=== PATIENT | female | born 1965 | race Caucasian/White ===

== ENCOUNTER → 2021-04-25 | Outpatient (CLI) | payer OTHER ==
[2021-04-25 11:01] LABS: HCT 46.6 % (34.0-46.0); HGB 14.8 gm/dL (11.4-16.0); MCH 29.8 pg (25.0-35.0); MCHC 31.7 g/dL (31.0-37.0); Platelet Count 248 k/uL (150-450); RBC 4.96 m/uL (3.80-5.40); WBC 5.4 k/uL (3.8-10.6)
[2021-04-25 11:18] LABS: African American GFR (CKD) >90 (>60 ml/min/1.73 sqM); Anion Gap 5 mmol/L; Blood Urea Nitrogen 13 mg/dL (7-17); Calcium 9.5 mg/dL (8.4-10.2); Carbon Dioxide 29 mmol/L (22-30); Chloride 104 mmol/L (98-107); Glucose 98 mg/dL (74-99); Non-African American GFR(CKD) 89 (>60 ml/min/1.73 sqM); Potassium 4.4 mmol/L (3.5-5.1); Sodium 138 mmol/L (137-145)
[2021-04-25 22:39] LABS: Chol/HDL Ratio 3.21 Ratio; VLDL Calculation 13.76 mg/dL (5.00-40.00)
== END | disposition home or self-care (01) ==
LOC: LABPAT 09:56
PROVIDERS: ATTEND Internal Medicine
DX: Z01.818 Encounter for other preprocedural examination (principal); R06.02 Shortness of breath; R07.9 Chest pain, unspecified
CPT/HCPCS: 80061; 80069; 85027

== ENCOUNTER 2021-05-02 06:14 | Day surgery (SDC) | payer OTHER ==
[2021-04-30 10:17] VITALS: BMI 23.8
[~2021-05-02 06:14] MED LIST: ALPRAZolam 0.25 MG TAB PO PRN; ALPRAZolam 0.5 MG TAB PO PRN; HEPARIN SODIUM,PORCINE 10,000 UNIT in SODIUM CHLORIDE 0.9% 1,000 ML IRRIGATION PRN; HEPARIN SODIUM,PORCINE 2,500 UNIT in SODIUM CHLORIDE 0.9% 250 ML IRRIGATION PRN; NITROGLYCERIN SL TABS 0.4 MG TAB SUBLINGUAL PRN; SODIUM CHLORIDE 0.9% 1,000 ML in EMPTY BAG 1 BAG IV SCH
[2021-05-02] MEDS ORDERED: ASPIRIN 325 MG TAB PO ONE (07:00)
[2021-05-02] MEDS ORDERED: SODIUM CHLORIDE 0.9% 1,000 ML IV ONE (07:00)
[2021-05-02 07:04] VITALS: RESP 16; TEMP 98
[2021-05-02] MEDS ORDERED: VERAPAMIL 2.5 MG/ML 2 ML AMP ONE (07:13)
[2021-05-02] MEDS ORDERED: LIDOCAINE 1% INJ 10MG/ML (20 ML MDV) ONE (07:13)
[2021-05-02] MEDS ORDERED: fentaNYL (PF) 50 MCG/ML 2 ML AMP ONE (07:35)
[2021-05-02] MEDS ORDERED: HEPARIN SODIUM 1,000 UN/ML (10ML VL) ONE (07:35)
[2021-05-02] MEDS ORDERED: fentaNYL (PF) 50 MCG/ML 2 ML AMP IVP ONE (07:43)
[2021-05-02] MEDS ORDERED: LIDOCAINE 1% INJ 10MG/ML (20 ML MDV) SQ ONE (07:43)
[2021-05-02] MEDS ORDERED: MIDAZOLAM 2 MG/2 ML VIAL IVP ONE (07:43)
[2021-05-02] MEDS ORDERED: VERAPAMIL SYRINGE (5 MG/10 ML) INTRAARTER ONE (07:48)
[2021-05-02] MEDS ORDERED: HEPARIN SODIUM 1,000 UN/ML (10ML VL) IV ONE (07:51)
--- NOTE | 2021-05-02 08:12 | P.CARDCATH ---
Description of Procedure: PROCEDURES PERFORMED: Left heart catheterization, bilateral coronary angiography, left ventriculogram INDICATION: Chest pain with exertion concerning for unstable angina, cardiomyopathy HISTORY: Patient is a pleasant 56-year-old female with history of cardiomyopathy and reported "heart blockages needing stents "from 2009 who has been having chest pain with exertion which has been worse over the last few months. Patient had recent echocardiogram in the office which showed EF 45%. Therefore heart catheterization was recommended. CONSENT:I have discussed the risks, benefits and alternative therapies for the above-mentioned procedure and for both sedation/analgesia as well as necessary blood product administration, if indicated, as they pertain to this patient. The patient has indicated understanding and acceptance of the risks and procedures discussed. PROCEDURE: After the risks, benefits and alternatives of the above mentioned procedure explained in detail with the patient, informed consent was obtained. Patient was taken to the catheterization lab and prepped and draped in usual fashion. 1% lidocaine was used to anesthetize the right radial artery. A 6- Tongan sheath was placed in the right radial artery using modified Seldinger technique. Left coronary angiography was performed with a 5-Tongan JL 3.5 cat heter and right coronary angiography was performed with a 5-Tongan JR5 catheter in various views. A 5-Tongan FR5 catheter was inserted into the left ventricle and pressure measurements were obtained. A 6-Tongan pigtail was inserted into the left ventricle and left ventriculogram was performed in the JACINTO projection. The right radial sheath was removed and a TR band was placed with hemostasis ach ieved. The patient tolerated the procedure well. Patient was transported back to the post catheterization holding area in stable condition. Conscious Sedation: Patient was monitored under the direct supervision of vision of myself for conscious sedation using Versed and fentanyl for a total duration of 22 minutes HEMODYNAMICS: Aortic: 136/75 LV: 146/11, LVEDP 19 SELECTIVE CORONARY ARTERIOGRAPHY: LEFT MAIN: The left main is a large caliber vessel which bifurcates into the LAD and circumflex. There is no significant stenosis. LEFT ANTERIOR DESCENDING CORONARY ARTERY: LAD is a large caliber vessel which wraps around to the apex. There is no significant stenosis. LEFT CIRCUMFLEX CORONARY ARTERY: Left circumflex is a moderate caliber vessel without significant stenosis. RIGHT CORONARY ARTERY: The right coronary artery is a large caliber vessel which gives off a PDA and PLV branch and is the dominant vessel. There is no significant stenosis. LEFT VENTRICULOGRAM: There is global hypokinesis with ejection fraction 45%. There is 1-2+ mitral regurgitation. There is no significant gradient with pullback. FINAL IMPRESSION: 1. Normal coronary arteries as described above. 2. Elevated left sided filling pressures 3. Mild cardiomyopathy with ejection fraction 45%. 4. 1-2+ mitral regurgitation PLAN: 1. Aggressive risk factor modification per most recent ACC/AHA guidelines. 2. Patient has normal coronary arteries and some of her symptoms may be related to heart failure. She does have elevated left-sided filling pressures and we will start her on a diuretic. Continue to optimize heart failure regimen.
[2021-05-02 11:34] VITALS: BP 112/75; PULSE 66
== END 2021-05-02 11:35 | disposition home or self-care (01) ==
LOC: CATHCVL 06:14
PROVIDERS: ATTEND Internal Medicine
DX: I42.9 Cardiomyopathy, unspecified (principal); I20.0 Unstable angina; I34.0 Nonrheumatic mitral (valve) insufficiency; F90.9 Attention-deficit hyperactivity disorder, unspecified type; Z20.822 Contact with and (suspected) exposure to COVID-19; Z72.0 Tobacco use; J44.9 Chronic obstructive pulmonary disease, unspecified; Z88.5 Allergy status to narcotic agent; Z88.0 Allergy status to penicillin; Z79.1 Long term (current) use of non-steroidal anti-inflammatories (NSAID); Z79.899 Other long term (current) drug therapy
CPT/HCPCS: 93458; 87635; J2250; J2001; J3010; J1644